=== PATIENT | male | born 1975 | race Hispanic/Latino ===

== ENCOUNTER 2023-02-28 13:03 | Emergency (ER) | payer SELFPAY ==
--- OUTSIDE RECORDS SUMMARY | 2023-02-28 13:06 | XMS REPORT | Continuity of Care Document ---
:1975 Author Organization [facility] t Address [address] [place] [address] Care Team Providers Name Role Phone Asked, No Pcp Primary Care Physician Unavailable Shey Luther LVN Attending Clinician PERCY PICHARDO Attending Clinician Unavailable Ke Hansen MD Attending Clinician Percy Pichardo MD Attending Clinician Doctor Unassigned, [place] Attending Clinician Unavailable Therapy, [facility] Covid Infusion Attending Clinician Unavailable Orlando García MD Attending Clinician ORLANDO GARCÍA Attending Clinician Unavailable PERCY PICHARDO Admitting Clinician Unavailable Percy Pichardo MD Admitting Clinician Payers Payer Name Policy Type Policy Number Effective Date Expiration Date S kameron COVID19 HRSA [id number] 2021 2021 UNINSURED 00:00:00 00:00:00 Problems Condition Condition Condition Status Onset Resolution Last Treating Co mments Source Name Details Category Date Date Treatment Clinician Date Acute Acute Disease Active 2020-05 Univers hypoxemic hypoxemic 0-20 [place]y of [place]ir[place] y failure 00 Medi nahum due to due to Branch COVID-19 COVID-19 Obesity Obesity Disease Active 2020-05 Univers (BMI (BMI 0-20 ity of 30-39.9) 30-39.9) 00:00: [place] 00 Medical Branch Acute Acute Disease Active 2019-05 Methodi suppurativ suppurativ 2-14 st e otitis e otitis 00:00: Hospit a media of media of 00 l left ear left ear with with spontaneou spontaneou s rupture s rupture of of tympanic tympanic membrane membrane Tinnitus Tinnitus Disease Active Metho di of both of both 4-26 st ears ears 00:00: Hospita 00 l 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-26 st hearing hearing 00:00: Hospita loss, loss, 00 l bilateral bilateral Adenomyosi Adenomyosi Disease Active H arris s of s of 06-14 [facility] 00:00: r r 00 Calculus Calculus Disease Active Harri s of of 06-14 [facility] 00:00: r with r with 00 chronic chronic cholecysti cholecysti tis tis without without obstructio obstructio n n Varicose Varicose Disease Active Harri s veins of veins of 8-18 Health both lower both lower 00:00: extremitie extremitie 00 s s Stomach Stomach Disease Active [place] pain pain 7 Health 00:00: 00 BMI BMI Disease Active [place] 36.0-36.9, 36.0-36.9, 7-22 He alth adult adult 00:00: 00 Other Other Disease Active [place] malaise malaise 7 Health and and 00:00: fatigue fatigue 00 Allergies, Adverse Reactions, Alerts Allergy Allergy Status Severity Reaction(s) Onset Inactive Treating Comm ents Source Name Type Date Date Clinician PENICILL Drug Active Swelling 2020-05 Univer s INS Class 0-14 ity of 00:00: [place] 00 Medical Branch Penicill Propensi Active Swelling 2020-05 Throat Univ ers ins ty to 0-14 swelling ity of adverse 00:00: [place] reaction 00 Medical s Branch Penicill Propensi Active Swelling Meth thuan ins ty to 4-26 st adverse 00:00: Hospita reaction 00 l s to drug Penicill Propensi Active Swelling Meth thuan ins ty to 4 st adverse 00:00: Hospita reaction 00 l s to drug Penicill Propensi Active Facial [place] in ty to 11-21 swelling Health adverse 00:00: reaction 00 s to drug NO KNOWN Drug Active Univers ALLERGIE Class ity of S [facility] Family History Family Member Diagnosis Comments Start Date Stop Date Source Natural mother Stroke Eliceo Foster lth Natural brother Diabetes Eliceo Seals alth Social History Social Habit Start Date Stop Date Quantity Comments Source History SDOH [facility]ism Alcohol Std Drinks Hospit al History SDOH [facility] Alcohol Binge Hospital Exposure to Yes University SARS-CoV-2 (event) [facility] History SDOH [facility] Alcohol Comment Hospital Sexual orientation Method ist Hospital History SDOH 2020-04-15 2020-04-15 1 [facility]ism Alcohol Frequency 00:00:00 00:00:00 Hospita l Alcohol intake 2020-04-15 2020-04-15 Current Confuc[facility]ism 00:00:00 00:00:00 non-drinker of Hospital alcohol (finding) History of Social 2020-04-15 2020-04-[address] function 00:00:00 00:00:00 Hospital Tobacco use and 2014-11-21 2014-11-21 Never used Eliceo Seals alth exposure 00:00:00 00:00:00 Sex [birth year] [facility] 00:00:00 00:00:00 Hospital Smoking Status Start Date Stop Date Source Unknown if ever smoked Universit y of [facility] Never smoker [facility] Branch Medications Ordered Filled Start Stop Current Ordering Indication Dosage Frequency Signature Comments Components Source Medication Medication Date Date Medication? Clinician (SIG) Name Name cholecalcif 2020-05 Yes [id number] 2000U Take 2 Univers osiris, 0-22 tablets by ity of vitamin D3, 00:00: mouth [place] 25 mcg 00 daily. Medical (1,000 Branch unit) tablet aspirin 81 2020-05 Yes [id number] 81mg Take 1 Univers mg chewable 0-22 tablet by ity of tablet 00:00: mouth [place] 00 daily. Medical Branch albuterol 2020-05 Yes [id number] 2{puff} Inhale 2 Univers 90 0-22 Puffs ity of mcg/actuati 00:00: every 4 [place] as on inhaler 00 (four) Medical hours as Branch needed for Shortness of Breath. cholecalcif 2020-05 Yes [id number] 2000U Take 2 Univers osiris, 0-22 tablets by ity of vitamin D3, 00:00: mouth [place] 25 mcg 00 daily. Medical (1,000 Branch unit) tablet aspirin 81 2020-05 Yes [id number] 81mg Take 1 Univers mg chewable 0-22 tablet by ity of tablet 00:00: mouth [place] 00 daily. Medical Branch albuterol 2020-05 Yes [id number] 2{puff} Inhale 2 Univers 90 0-22 Puffs ity of mcg/actuati 00:00: every 4 [place] as on inhaler 00 (four) Medical hours as Branch needed for Shortness of Breath. dexAMETHaso 2020-05- No [id number] 6mg Take 1 Univers ne 6 mg 0-22 10-30 tablet by ity of tablet 00:00: 04:59 mouth [place] 00 :00 daily with Medical breakfast Branch for 7 days. dexAMETHaso 2020-05- No [id number] 6mg Take 1 Univers ne 6 mg 0-22 10-30 tablet by ity of tablet 00:00: 04:59 mouth [place] 00 :00 daily with Medical breakfast Branch for 7 days. remdesivir 2020-05- No 100mg 100 mg, IV Univers 100 mg in 0- 10-25 Infusion, ity of NaCl 0.9% 21:00: 20:59 DAILY AT [place] as (NS) 100 mL 00 :00 1600, 4 Medic al MINI-BAG doses, Branch First dose on Erendira 02/20/21 at 1600, Last dose on 02/23/21 at 1600, Administer over 60 Minutes, 100 mL
Is the patient mechanical ly ventilated ? NO
Is the patient requiring supplement al oxygen? YES enoxaparin 2020-05 Yes 40mg 40 mg, Unive rs (LOVENOX) 0-21 Subcutaneo ity of injection 14:00: [place], [place]ILY, [place] 40 mg 00 First dose Medical on Erendira Branch 02/20/21 at 0900, Until Discontinu ed, Routine dexamethaso 2020-05- No 6mg 6 mg, IV U nivers ne 0-21 10-30 Push, ity of (DECADRON 14:00: 13:59 DAILY, 9 [place] PHOSPHATE) 00 :00 doses, Medical injection 6 First dose Br anch mg (after last reorder) on Wed02/20/21 at 0900, Last dose on Wed02/28/21 at 0900, STAT albuterol 2020-05 Yes 2{puff} 2 Puff, Un bren[place] (VENTOLIN) 0-21 Inhalation ity of inhaler 2 09:52: , Q4HPRN, [place] as Puff 19 Starting Medical on Erendira Branch 02/20/21 at 0452, Until Discontinu ed, Routine, Wheezing, Shortness of Breath, Bronchospa sm, Chest tightness ondansetron 2020-05 Yes 4mg 4 mg, Slow Univers (ZOFRAN 0-21 IV Push, ity of (PF)) 09:52: Q6HPRN, [place] injection 4 05 Starting Medi nahum mg on Erendira Branch 02/20/21 at 0452, Until Discontinu ed, Routine, Nausea and Vomiting (N/V) codeine-gua 2020-05 Yes 5mL 5 mL, Unive rs ifenesin 0-21 Oral, ity of (ROBITUSSIN 09:51: Q6HPRN, [place] AC) 10-100 51 Starting Medic al mg/5 mL on Erendira Branch oral 02/20/21 solution 5 at 0451, mL Until Discontinu ed, Routine, Cough acetaminoph 2020-05 Yes 650mg 650 mg, Un brenna en 0-20 Oral, ity of (TYLENOL) 22:31: Q6HPRN, [place] tablet 650 36 Starting Medic al mg on Wed Branch 02/19/21 at 1731, Until Discontinu ed, Routine, Pain (scale 1-3) iopamidol 2020-05- No [id number] 100mL 100 mL, Univers (ISOVUE 0-20 10-20 Intravenou ity o f 370-500 mL) 22:15: 22:30 s, ONCE, 1 [place] injection 00 :00 dose, On Medica l 100 mL Wed Branch 02/19/21 at 1730, Routine dexamethaso 2020-05- No 10mg 10 mg, IV Univers ne 0-20 10-20 Push, ity of (DECADRON 21:45: 21:42 ONCE, 1 [place] PHOSPHATE) 00 :00 dose, On Medic al injection Wed Branch 10 mg 02/19/21 at 1645, STAT ascorbic 2020-05 Yes 1000mg [Order 1 Uni vers acid 0-20 Start] ity of (vitamin C) 21:30: Name: [place] (VITAMIN C) 00 ascorbic Medi nahum tablet acid Branch 1,000 mg (vitamin C) (VITAMIN C) tablet 1,000 mg Signed Summary: 1,000 mg, Oral, BID, First dose on Wed02/19/21 at 1630, Until Discontinu ed, Routine [Order 1 End] [Order 2 Start] Name: cholecalci ferol (vitamin D3) tablet 2,000 Units Signed Summary: 2,000 Units, Oral, BID, First dose on Wed02/19/21 at 1630, Until Discontinu ed, Routine [Order 2 End] [Order 3 Start] Name: zinc sulfate (ORAZINC) capsule 220 mg Signed Summary: 220 mg, Oral, DAILY, First dose on Wed02/19/21 at 1630, Until Discontinu ed, Routine [Order 3 End] [Order 4 Start] Name: thiamine (VITAMIN B1) tablet 100 mg Signed Summary: 100 mg, Oral, DAILY, First dose on Wed02/19/21 at 1630, Until Discontinu ed, Routine [Order 4 End] [Order 5 Start] Name: melatonin (MELATIN) tablet 6 mg Signed Summary: 6 mg, Oral, QHS, First dose on Wed02/19/21 at 2100, Until Discontinu ed, Routine [Order 5 End] [Order 6 Start] Name: multivitam in tablet 1 tablet Signed Summary: 1 tablet, Oral, DAILY, First dose on Wed02/20/21 at 0900, Until Discontinu ed, Routine [Order 6 End] No known 2020-05 No Univers medications 0-20 ity of 19:52: [place] 14 [facility] Branch dexamet/mox 2020-05- No by Unive rs iflox/ketor 0-20 10-20 Intraocula i ty of /NaCl/PF 19:52: 00:00 r route. [place] (DEXAMET-MO 12 :00 Medical XIFL-KETORO Branch -NACL,PF,) 1-0.5-0.4 mg/mL Soln casirivimab 2020-05- No [id number] 1200mg 1,200 mg, [facility] -imdevimab 0-02-13 Subcutaneo it y of (REGEN-COV 22:45: 21:22 us, ONCE, [place] (EUA)) 00 :00 1 dose, On Medical injection Erendira Branch 1,200 mg 02/13/21 at 1745, Routine fluticasone 2019-05 Yes 100ug QD 2 sprays M ethodi propionate 2-14 ([address] (FLONASE) 00:00: total) by Hos anth[facility] 50 00 Each Nare l mcg/actuati route on nasal daily. spray fluticasone 2019-05 Yes 100ug QD 2 sprays M ethodi propionate 2-14 ([address] (FLONASE) 00:00: total) by Hos [facility] 50 00 Each Nare l mcg/actuati route on nasal daily. spray dicyclomine Yes Umbilical 10mg Take 1 [place] (BENTYL) 10 1-15 pain capsule by He alth mg capsule 00:00: mouth 3 00 times daily as needed for Pain (umbilical ). dicyclomine Yes Umbilical 10mg Take 1 [place] (BENTYL) 10 1-15 pain capsule by He alth mg capsule 00:00: mouth 3 00 times daily as needed for Pain (umbilical ). Vital Signs Vital Name Observation Time Observation Value Comments Source Heart rate 2021-02-21 21:00:00 72 /min [facility] Respiratory rate 2021-02-21 21:00:00 23 /min [facility] Oxygen saturation in 2021-02-21 21:00:00 90 /min [facility] Arterial blood by [facility] Pulse oximetry Branch Systolic blood 2021-02-21 21:00:00 110 mm[Hg] [facility] Di[facility] blood 2021-02-21 21:00:00 73 mm[Hg] [facility] Body temperature 2021-02-21 16:49:00 36.56 Ceci [facility] Body height 2021-02-20 00:54:00 180.3 cm [facility] Body weight 2021-02-20 00:54:00 114.488 kg [facility] BMI 2021-02-20 00:54:00 35.20 kg/m2 [facility] Systolic blood 2021-02-13 22:07:00 133 mm[Hg] [facility] Diastolic blood 2021-02-13 22:07:00 80 mm[Hg] [facility] Heart rate 2021-02-13 22:07:00 74 /min [facility] Body temperature 2021-02-13 22:07:00 36.83 Ceci [facility] 2021-02-13 22:07:00 20 /min [facility] Oxygen saturation in 2021-02-13 22:07:00 97 /min [facility] Arterial blood by [facility] Pulse oximetry Branch Body height 2021-02-13 21:18:00 180.3 cm [facility] Body weight 2021-02-13 21:18:00 127.007 kg [facility] BMI 2021-02-13 21:18:00 39.05 kg/m2 [facility] Procedures Procedure Date / Time Performing Clinician Source Performed DUPLEX VENOUS LEGS 2021-02-20 13:47:00 Percy Pichardo [facility] BILATERAL - BY VASCULAR [facility] Branch LAB BASIC METABOLIC PANEL 2021-02-20 10:26:00 Percy Pichardo [facility] (NA, K, CL, CO2, GLUCOSE, Medica l Branch BUN, CREATININE, CA) CBC WITH DIFF 2021-02-20 10:26:00 Percy Pichardo [facility] PROTHROMBIN TIME / INR 2021-02-20 10:26:00 Evelyn Salazar [facility] PROCALCITONIN 2021-02-19 22:35:00 Percy Pichardo [facility] CT CHEST PULMONARY 2021-02-19 22:14:46 Percy Pichardo [facility] ANGIOGRAM Medical Branch CRITICAL CARE 2021-02-19 21:30:38 Ke Hansen [facility] XR CHEST 1 VW 2021-02-19 20:17:53 Ke Hansen [facility] HB ECG ROUTINE & RHYTHM 2021-02-19 20:14:11 Ke Hansen [facility] STRIP Medical Branch C-REACTIVE PROTEIN 2021-02-19 20:04:00 Percy Pichardo [facility] TROPONIN I 2021-02-19 20:04:00 Ke Hansen [facility] COMP. METABOLIC PANEL 2021-02-19 20:04:00 Ke Hansen [facility] ([id number]) Medical Branch CBC WITH DIFF 2021-02-19 20:04:00 Tyrone Ke [facility] N-TERMINAL PRO-BNP 2021-02-19 20:04:00 Ke Hansen [facility] COVID-19 (ID NOW RAPID 2021-02-19 20:04:00 Ke Hansen [facility] TESTING) Medical Branch LAB ONLY COVID 2021-02-19 20:04:[address] [facility] NOTICE OF PRIVACY 2021-02-19 19:23:02 Doctor Unassigned, [facility] PRACTICES [facility] CONSENT/REFUSAL FOR 2021-02-19 19:22:31 Doctor Unassigned, [facility] DIAGNOSIS AND TREATMENT [place] [facility] [id number] CONSENT 2021-02-13 05:01:00 Doctor Unassigned, [facility] Plan of Care Planned Activity Planned Date Details Comments Source Future Scheduled 2023-02-27 [facility] Test 00:46:51 malignant neoplasm of colon (procedure) [code = 158893646] Future Scheduled 2023-02-27 [facility] Test 00:46:51 malignant neoplasm of colon (procedure) [code = 023582141] Future Scheduled 2023-02-27 [facility] Test 00:46:51 malignant neoplasm of colon (procedure) [code = 254306201] Future Scheduled 2023-02-27 COVID-19 VACCINE [facility] Test 00:46:51 (#1) [code = COVID-19 VACCINE (#1)] Future Scheduled 2023-02-27 Hepatitis C [facility] Test 00:46:51 screening (procedure) [code = 741518540] Future Scheduled 2023-02-27 [facility] Test 00:46:51 malignant neoplasm of colon (procedure) [code = 610142448] Future Scheduled 2023-02-27 [facility] Test 00:46:51 malignant neoplasm of colon (procedure) [code = 001677045] Future Scheduled 2023-02-27 INFLUENZA VACCINE Method ist Hospital Test 00:46:51 (#1) [code = INFLUENZA VACCINE (#1)] Future Scheduled 2023-01-01 IMM Influenza [place] [facility] Test 00:00:00 Seasonal (>/= 19 yrs) [code = IMM Influenza Seasonal (>/= 19 yrs)] Future Scheduled 2021-06-04 COVID-19 VACCINE [facility] Test 00:14:58 (1) [code = COVID-19 VACCINE (1)] Future Scheduled 2021-06-04 [facility] Test 00:14:58 screening (procedure) [code = 419309027] Future Scheduled 2021-06-04 INFLUENZA VACCINE [facility] Hospital Test 00:14:58 [code = INFLUENZA VACCINE] Future Scheduled 2021-01-31 IMM Influenza [place] [facility] Test 00:00:00 Seasonal Jan to July (>/= 19 yrs) [code = IMM Influenza Seasonal Jan to July (>/= 19 yrs)] Future Scheduled 1980 COVID-19 Vaccine [facility] Test 00:00:00 (1) [code = COVID-19 Vaccine (1)] Future Scheduled 1975 COVID-19 Vaccine [facility] Test 00:00:00 (#1) [code = COVID-19 Vaccine (#1)] Encounters Start End Encounter Admission Attending Care Care Encounter Source Date/Time Date/Time Type Type Clinicians Facility Department ID 2021-02-24 2021-02-24 Transition Mariajose Luther [id number] Univers 00:00:00 00:00:00 of Care Shey Luna [id number] ity [id number] [id number] [facility] nahum 403 Branch 2021-02-19 2021-02-21 Inpatient X [facility] [id number] Univers 14:40:00 19:20:00 PERCY ity [facility] 2021-02-19 2021-02-21 Hospital Ke Hansen [facility] [id number] Univers 14:40:00 19:20:00 Encounter Goldy Percy Liu [id number] ity [id number] [phone] [facility] 080 Branch 2021-02-19 2021-02-19 Orders Doctor [place]ARLAND [id number] Univers 00:00:00 00:00:00 Only Unassigned, HORACE [id number] ity of [place] [facility] [id number] [place] [id number] [facility] 009 Branch 2021-02-13 2021-02-13 Nurse Therapy, Adc Covid Infusion [facility] [id number] Univers 16:11:56 17:11:56 Visit Orlando García [id number] ity [id number] [facility] [phone] [facility] 053 Branch 2021-02-13 2021-02-13 Outpatient R SERENA [facility] [id number] Univers 16:00:00 16:00:00 [place] [facility] 2021-02-13 2021-02-13 Orders Doctor GARLAND [id number] Univers 00:00:00 00:00:00 Only Unassigned, HORACE [id number] ity of [place] [facility] [id number] [place] [phone] [facility] 009 Wing Results Test Description Test Time Test Comments Results Result Comments Source C-REACTIVE PROTEIN 2021-02-20 14:57:42 Test Item Value Reference Range Interpretation Comme nts CRP (test code = 9399565260) 1.2 mg/dL <0.8 H Lab Interpretation (test code = 38378-4) Abnormal [facility] (NA, K, CL, CO2, GLUCOSE, BUN, CREATININE, CA)2021-02-20 13:26:42 Test Item Value Reference Range Interpretation Comments NA (test code = 137 mmol/L 135-145 7122985625) K (test code = 4.5 mmol/L 3.5-5.0 5403839146) CL (test code = 107 mmol/L 98-108 9967136106) CO2 TOTAL (test code = 24 mmol/L 23-31 1513933453) AGAP (test code = 2-16 6894791029) BUN (test code = 19 mg/dL 7-23 6166760031) GLUCOSE (test code = 126 mg/dL 70-110 H 7022547410) CREATININE (test code = 0.79 mg/dL 0.60-1.25 6595374596) CALCIUM (test code = 8.7 mg/dL 8.6-10.6 9759097469) eGFR (test code = mL/min/1.73m2 3923540544) NEEL (test code = NEEL) Association of Glomerular Filtration Rate (GFR) and Staging of Kidney Disease* + --+ --+ ------+| GFR (mL/min/1.73 m2) ?| With Kidney Damage ?| ?Without Kidney Damage+ --------+ --------+ +| ?>90 ?| ?Stage one ?| ? Normal ?+ ---+ ---+ -------+| ?60-89 ?| ?Stage two ?| ? Decreased GFR ? + --+ --+ ------+| ?30-59 ?| ?Stage three ?| ? Stage three ? + --+ --+ ------+| ?15-29 ?| ?Stage four ? | ? Stage four ?+ ---+ ---+ -------+| ?<15 (or dialysis) ? ?| ?Stage five ? | ? Stage five ?+ ---+ ---+ -------+ *Each stage assumes the associated GFR level has been in effect for at least three months. ?Stages 1 to 5, with or without kidney disease, indicate chronic kidney disease. Notes: Determination of stages one and two (with eGFR >59mL/min/1.73 m2) requires estimation of kidney damage for at least three months as defined by structural or functional abnormalities of the kidney, manifested by either:Pathological abnormalities or Markers of kidney damage (including abnormalities in the composition of the blood or urine or abnormalities in imaging tests). Lab Interpretation Abnormal (test code = 81081-5) [facility] with [id number] 12:48:13 Test Item Value Reference Range Interpretation Comments WBC (test code = See_Comment [Automated 6690-2) message] The sy stem which generated this result transmitted reference range : 4.20 - 10.70 10*3/?L. The reference range was not used to interpret this result as normal/abnormal . RBC (test code = See_Comment [Automated 789-8) message] The sy stem which generated this result transmitted reference range : 4.26 - 5.52 10*6/?L. The reference range was not used to interpret this result as normal/abnormal . HGB (test code = 14.2 g/dL 12.2-16.4 718-7) HCT (test code = 43.4 % 38.4-49.3 4544-3) MCV (test code = 80.1 fL 81.7-95.6 L 787-2) MCH (test code = 26.2 pg 26.1-32.7 785-6) MCHC (test code = 32.7 g/dL 31.2-35.0 786-4) RDW-SD (test code = 35.0 fL 38.5-51.6 L 50397-5) RDW-CV (test code = 12.3 % 12.1-15.4 788-0) PLT (test code = See_Comment H [Automated 777-3) message] The sy stem which generated this result transmitted reference range : 150 - 328 10*3/ ?L. The reference r josue was not used to interpret this result as normal/abnormal . MPV (test code = 10.8 fL 9.8-13.0 36743-6) NRBC/100 WBC (test See_Comment [Automat ed code = 7541537229) message] The system which generated this result transmitted reference range : 0.0 - 10.0 /100 WBCs. The refer ence range was not u sed to interpret th is result as normal/abnormal . NRBC x10^3 (test code <0.01 See_Comment [Auto mated = 2160845888) message] The s ystem which generated this result transmitted reference range : 10*3/?L. The reference range was not used to interpret this result as normal/abnormal . GRAN MAT (NEUT) % 66.1 % (test code = 770-8) IMM GRAN % (test code 5.50 % = 2997001195) LYMPH % (test code = 19.9 % 736-9) MONO % (test code = 8.0 % 5905-5) EOS % (test code = 0.0 % 713-8) BASO % (test code = 0.5 % 706-2) GRAN MAT x10^3(ANC) 4.95 10*3/uL 1.99-6.95 (test code = 4149399600) IMM GRAN x10^3 (test 0.41 10*3/uL 0.00-0.06 H code = 7611786832) LYMPH x10^3 (test code 1.49 10*3/uL 1.09-3.23 = 731-0) MONO x10^3 (test code 0.60 10*3/uL 0.36-1.02 = 742-7) EOS x10^3 (test code = <0.03 0.06-0.53 L 711-2) BASO x10^3 (test code 0.04 10*3/uL 0.01-0.09 = 704-7) REACT LYMPHS (test Rare code = 5063902542) Lab Interpretation Abnormal (test code = 68150-9) [facility] [id number] 12:17:46 Test Item Value Reference Range Interpretation Comments PROTIME PATIENT (test See_Comment [Auto mated message] code = 5964-2) The system [employer] generated this result transmitted ref erence range: 12.0 - 1 4.7 Seconds. The re ference range was not u sed to interpret this result as normal/abnor mal. INR (test code = 6301-6) Nor mal INR <1.1; Warfarin Therap eutic range 2.0 to 3. 0 or 2.5 to 3.5, dep ending upon the indica tions. Lab Interpretation (test Normal code = 95357-1) [facility] 03:42:19 Test Item Value Reference Range Interpretation Comments Procalcitonin (test 0.02 ng/mL <0.07 code = 3114532288) NEEL (test code = NEEL) INTERPRETATION OF PROCALCITONIN RESULTS IN ADULTS >= 18 YEARS OF AGE Initiation and discontinuation of antibiotics on patients with suspected or confirmed Lower Respiratory Tract Infection in Adults >= 18 years of age. + +-------- --------+ + -----+|Procalcitonin |Interpretation ?|Antibiotic ? ? |Considerations ? |ng/mL ? | ?|recommendation | ? + +-------- --------+ + -----+| <0.1 ? | Bacterial ? ? ?| Strongly ? ? ?| ? | ?| infection very | discouraged ? | Overruling: ? | ?| unlikely ? ? ? | ? | ? Clinically unstable ? ? ? + +-------- --------+ + ? High risk for adverse ? ? | <0.25 ?| Bacterial ? ? ?| Discouraged ? | ? outcome ? | ?| infection ? ? ?| ? | ? SEE IMPORTANT NOTE ?| ?| unlikely ? ? ? | ? | ? + +-------- --------+ + -----+| >=0.25 ? ? ? | Bacterial ? ? ?| Encouraged ? ?| ? | ?| infection ? ? ?| ? | ? | ?| likely ? | ? | Consider treatment failure ?+ +------- ---------+ -+ if levels does not decrease | >0.5 ? | Bacterial ? ? ?| Strongly ? ? ?| appropriately ? | ?| infection very | encouraged ? ?| ? | ?| likely ? | ? | ? + +-------- --------+ + -----+ Discontinuation of antibiotics in high-acuity patients with suspected or confirmed sepsis in Adults >= 18 years of age. + +-------- --------+ + -----+|Procalcitonin |Interpretation ?|Antibiotic ? ? |Considerations ? |ng/mL ? | ?|recommendation | ? + +-------- --------+ + -----+| <0.25 ?| Bacterial ? ? ?| Strongly ? ? ?| ? | ?| infection very | discouraged ? | Overruling: ? | ?| unlikely ? ? ? | ? | ? Clinically unstable ? ? ? + +-------- --------+ + ? High risk for adverse ? ? | <0.5 or drop | Bacterial ? ? ?| Discouraged ? | ? outcome ? | >80% from ? ?| infection ? ? ?| ? | ? SEE IMPORTANT NOTE ?| highest PCT ?| unlikely ? ? ? | ? | ? | level ?| ?| ? | ? + +-------- --------+ + -----+| >=0.5 ?| Bacterial ? ? ?| Encouraged ? ?| ? | ?| infection ? ? ?| ? | ? | ?| likely ? | ? | Consider treatment failure ?+ +------- ---------+ -+ if levels does not decrease | >1.0 ? | Bacterial ? ? ?| Strongly ? ? ?| appropriately ? | ?| infection very | encouraged ? ?| ? | ?| likely ? | ? | ? + +-------- --------+ + -----+ Percentage of drop of Procalcitonin calculation for Discontinuation of antibiotics in high-acuity patients with suspected or confirmed sepsis in Adults >= 18 years of age. ? Procalcitonin highest{}-Procalcitonin current{}Delta Procalcitonin = x100% ? Procalcitonin current {} IMPORTANT NOTE: Procalcitonin may be elevated without bacterial infection by physiologic stress related to trauma, bullock, chronic dialysis, metastatic cancer, surgery in the past seven days, malaria, some fungal infections, and some forms of vasculitis. The interpretation algorithm may not apply to patients with immunosuppression (equivalent of >10 mg of prednisone daily), HIV with CD4 cell count < 350 cells/mm3, active malignancy on systemic chemotherapy, solid organ transplant or hematopoietic stem cell transplantation, or hospital acquired pneumonia. Additionally, some clinical trials of procalcitonin have excluded patients with shock requiring vasopressor use, acute respiratory failure requiring mechanical ventilation, or those with known lung abscess/empyema. For further information please refer to:[email or web address] Lab Interpretation Normal (test code = 85741-2) [facility] WITH [id number] 20:56:55 Test Item Value Reference Range Interpretation Comments WBC (test code = See_Comment [Automated 1403-2) message] The sy stem which generated this result transmitted reference range : 4.20 - 10.70 10*3/?L. The reference range was not used to interpret this result as normal/abnormal . RBC (test code = See_Comment H [Automated 449-8) message] The sy stem which generated this result transmitted reference range : 4.26 - 5.52 10*6/?L. The reference range was not used to interpret this result as normal/abnormal . HGB (test code = 14.9 g/dL 12.2-16.4 718-7) HCT (test code = 45.5 % 38.4-49.3 4544-3) MCV (test code = 80.4 fL 81.7-95.6 L 787-2) MCH (test code = 26.3 pg 26.1-32.7 785-6) MCHC (test code = 32.7 g/dL 31.2-35.0 786-4) RDW-SD (test code = 35.5 fL 38.5-51.6 L 21519-0) RDW-CV (test code = 12.4 % 12.1-15.4 788-0) PLT (test code = See_Comment H [Automated 707-3) message] The sy stem which generated this result transmitted reference range : 150 - 328 10*3/ ?L. The reference r josue was not used to interpret this result as normal/abnormal . MPV (test code = 10.6 fL 9.8-13.0 77960-1) NRBC/100 WBC (test See_Comment [Automat ed code = 2900178201) message] The system which generated this result transmitted reference range : 0.0 - 10.0 /100 WBCs. The refer ence range was not u sed to interpret th is result as normal/abnormal . NRBC x10^3 (test code <0.01 See_Comment [Auto mated = 2932362881) message] The s ystem which generated this result transmitted reference range : 10*3/?L. The reference range was not used to interpret this result as normal/abnormal . GRAN MAT (NEUT) % 68.6 % (test code = 770-8) IMM GRAN % (test code 5.60 % = 4786186911) LYMPH % (test code = 16.1 % 736-9) MONO % (test code = 9.2 % 5905-5) EOS % (test code = 0.0 % 713-8) BASO % (test code = 0.5 % 706-2) GRAN MAT x10^3(ANC) 5.71 10*3/uL 1.99-6.95 (test code = 5992924061) IMM GRAN x10^3 (test 0.47 10*3/uL 0.00-0.06 H code = 6266566641) LYMPH x10^3 (test code 1.34 10*3/uL 1.09-3.23 = 731-0) MONO x10^3 (test code 0.77 10*3/uL 0.36-1.02 = 742-7) EOS x10^3 (test code = <0.03 0.06-0.53 L 711-2) BASO x10^3 (test code 0.04 10*3/uL 0.01-0.09 = 704-7) BANDS (test code = Increased A 6799696447) REACT LYMPHS (test Rare code = 8090784148) Lab Interpretation Abnormal (test code = 09927-2) [facility] [id number] 20:43:12 Test Item Value Reference Interpretation Comments Range TROPONIN I (test 0.003 ng/mL See_Comment [Automated code = 6393224368) message] The system which generated this result transmitted reference range : <=0.034. The reference range was not used to interpret this result as normal/abnormal . NEEL (test code = Reference (Normal) NEEL) Range (defined by the 99th percentile reference limit): <= 0.034 ng/mL Note: Cardiac troponin begins to rise 3-4 hours after the onset of ischemia. Repeat in 4-6 hours if the sample was drawn within 3-4 hours of the onset of the symptom and found normal. Diagnosis of myocardial injury is made with acute changes in cTn concentrations with at least one serial sample above the 99th percentile upper reference limit (URL), taken together with the patient's clinical presentation. Biotin has been reported to cause a negative bias, interpret results relative to patient's use of biotin. Lab Interpretation Normal (test code = 47554-2) [facility] [id number] 20:40:08 Test Item Value Reference Range Interpretation Comments NT-proBNP (test code 73 pg/mL See_Comment [Autom ated = 9600216984) message] The system which generated this result transmitted reference range : <=125. The reference range was not used to interpret this result as normal/abnormal . NEEL (test code = NEEL) Biotin has been reported to cause a negative bias, interpret results relative to patient's use of biotin. Lab Interpretation Normal (test code = 06739-8) [facility] [id number] 20:32:46 Test Item Value Reference Range Interpretation Comments NA (test code = 138 mmol/L 135-145 1270671897) K (test code = 5.4 mmol/L 3.5-5.0 H 8907085141) CL (test code = 107 mmol/L 98-108 6870061840) CO2 TOTAL (test code = 24 mmol/L 23-31 0669539141) AGAP (test code = 2-16 6065381090) BUN (test code = 16 mg/dL 7-23 2529394941) GLUCOSE (test code = 117 mg/dL 70-110 H 8107821189) CREATININE (test code = 0.79 mg/dL 0.60-1.25 7842070104) TOTAL BILI (test code = 0.9 mg/dL 0.1-1.8 6553856253) CALCIUM (test code = 9.1 mg/dL 8.6-10.6 1754773381) T PROTEIN (test code = 7.4 g/dL 6.3-8.2 4967556685) ALBUMIN (test code = 3.9 g/dL 3.5-5.0 4272988431) ALK PHOS (test code = 58 U/L 34-122 8669035175) ALTv (test code = 47 U/L 5-50 2-6) AST(SGOT) (test code = 39 U/L 13-40 8282103498) eGFR (test code = mL/min/1.73m2 3950098221) NEEL (test code = NEEL) Association of Glomerular Filtration Rate (GFR) and Staging of Kidney Disease* + --+ --+ ------+| GFR (mL/min/1.73 m2) ?| With Kidney Damage ?| ?Without Kidney Damage+ --------+ --------+ +| ?>90 ?| ?Stage one ?| ? Normal ?+ ---+ ---+ -------+| ?60-89 ?| ?Stage two ?| ? Decreased GFR ? + --+ --+ ------+| ?30-59 ?| ?Stage three ?| ? Stage three ? + --+ --+ ------+| ?15-29 ?| ?Stage four ? | ? Stage four ?+ ---+ ---+ -------+| ?<15 (or dialysis) ? ?| ?Stage five ? | ? Stage five ?+ ---+ ---+ -------+ *Each stage assumes the associated GFR level has been in effect for at least three months. ?Stages 1 to 5, with or without kidney disease, indicate chronic kidney disease. Notes: Determination of stages one and two (with eGFR >59mL/min/1.73 m2) requires estimation of kidney damage for at least three months as defined by structural or functional abnormalities of the kidney, manifested by either:Pathological abnormalities or Markers of kidney damage (including abnormalities in the composition of the blood or urine or abnormalities in imaging tests). Lab Interpretation Abnormal (test code = 70933-7) [facility]"
[2023-02-28] MEDS ORDERED: methocarbamoL 500 MG TAB ONE (13:46)
[2023-02-28] MEDS ORDERED: KETOROLAC 30 MG/ML INJ ONE (13:47)
[2023-02-28 13:53] LABS: Absolute Lymphocytes (CBC) 3.4 K/uL (0.7-4.9); Hematocrit 44.9 % (39.6-49.0); Lymphocytes % 39.4 % (15.3-44.8); MPV 9.1 fL (7.6-11.3); Platelets 257 thou/uL (152-406); RBC Red Blood Cell Count 5.55 M/uL (4.33-5.43)
--- NOTE | 2023-02-28 14:10 | RAD REPORT ---
EXAM DESCRIPTION: USExtremity Venous Uni Ltd02/28/2023 2:02 pm CLINICAL HISTORY: left leg swelling COMPARISON: None FINDINGS: Left common femoral, superficial femoral, greater saphenous, popliteal and posterior tibi al veins are compressible and demonstrate augmentation. Doppler demonstrates good flow. Grayscale, color and spectral analysis performed on all vessels IMPRESSION: No evidence of deep venous thrombosis involving the left lower extremity.
[2023-02-28 14:26] LABS: Potassium 3.7 mEq/L (3.5-5.1)
--- NOTE | 2023-02-28 14:40 | ER ---
Nurse's Notes [facility] Name: Rayray Cardozo Age: 47 yrs Sex: Male : 1975 Arrival Date: 02/28/2023 Time: 13:03 Bed 7 Private MD: Diagnosis: Muscle spasm;Pain in left arm Presentation: 02/28 13:09 Chief complaint: Patient states: "20 minutes ago, I started having left arm pain while mb9 at work. It feels like my veins are on fire and tingles and keeping my arm elevated helps. The same thing happened in my left leg 1 week ago". Coronavirus screen: At this time, the client does not indicate any symptoms associated with coronavirus-19. Ebola Screen: No symptoms or risks identified at this time. Initial Sepsis Screen: Does the patient meet any 2 criteria? No. Patient's initial sepsis screen is negative. Does the patient have a suspected source of infection? No. Patient's initial sepsis screen is negative. Risk Assessment: Do you want to hurt yourself or someone else? Patient reports no desire to harm self or others. Onset of symptoms was February 28, 2023. 13:09 Method Of Arrival: Ambulatory mb9 13:09 Acuity: GARRET 3 mb9 Historical: - Allergies: 13:13 PENICILLINS; mb9 - Home Meds: 13:13 None [Active]; mb9 - PMHx: 13:13 None; mb9 - PSHx: 13:13 None; mb9 - Immunization history:: Adult Immunizations up to date. - Social history:: Smoking status: Patient reports the use of cigarette tobacco products, denies chronic smoking, but will smoke occasionally. Screenin:10 [facility] ED Fall Risk Assessment (Adult) History of falling in the last 3 months, rs5 including since admission No falls in past 3 months (0 pts) Confusion or Disorientation No (0 pts) Intoxicated or Sedated No (0 pts) Impaired Gait No (0 pts) Mobility Assist Device Used No (0 pt) Altered Elimination No (0 pt) Score/Fall Risk Level 0 - 2 = Low Risk Oriented to surroundings, Maintained a safe environment. 13:10 Abuse screen: Denies threats or abuse. Nutritional screening: No deficits noted. rs5 Tuberculosis screening: No symptoms or risk factors identified. Assessment: 13:10 General: Appears in no apparent distress. comfortable, Behavior is calm, cooperative. rs5 13:10 Pain: Complains of pain in left forearm Pain does not radiate. Pain currently is 6 out rs5 of 10 on a pain scale. Quality of pain is described as sharp, shooting, Pain began 3 hours ago. Is intermittent. Neuro: Level of Consciousness is awake, alert, obeys commands, Oriented to person, place, time, situation. Cardiovascular: Heart tones S1 S2 present Pulses are all present. Rhythm is regular. Respiratory: Airway is patent Respiratory effort is even, unlabored, Respiratory pattern is regular, symmetrical, Breath sounds are clear bilaterally. GI: Abdomen is round non-distended, Bowel sounds present X 4 quads. Abd is soft and non tender X 4 quads. : No signs and/or symptoms were reported regarding the genitourinary system. EENT: No signs and/or symptoms were reported regarding the EENT system. Derm: Skin is intact, Skin is pink, warm \\T\\ dry. Derm:. Musculoskeletal: Range of motion: intact in all extremities. 13:50 Reassessment: Patient denies pain at this time. rs5 14:55 Reassessment: Patient and/or family updated on plan of care and expected duration. Pain rs5 level reassessed. Patient is alert, oriented x 3, equal unlabored respirations, skin warm/dry/pink. Vital Signs: 13:09 BP 142 / 82; Pulse 86; Resp 18; Temp 98.5; Pulse Ox 98% ; Weight 119.29 kg; Height 5 mb9 ft. 11 in. ; Pain 9/10; 13:48 BP 129 / 73; Pulse 80; Resp 18; Pulse Ox 98% on R/A; rs5 14:40 BP 133 / 75; Pulse 82; Resp 17; Pulse Ox 99% on R/A; rs5 13:09 Body Mass Index 36.68 (119.29 kg, 180.34 cm) mb9 13:09 Pain Scale: Adult mb9 ED Course: 13:07 Patient arrived in ED. mg5 13:08 Jordan More MD is Attending Physician. ec2 13:10 Eliceo Sprague, BOY is Primary Nurse. rs5 13:10 Patient has correct armband on for positive identification. Call light in reach. Side rs5 rails up X2. 13:13 Triage completed. mb9 13:13 Arm band placed on. mb9 13:35 Inserted saline lock: 22 gauge in right forearm, using aseptic technique. rs5 14:03 Extremity Venous Uni Ltd US In Process Unspecified. EDMS 15:17 No provider procedures requiring assistance completed. rs5 15:17 IV discontinued, intact, bleeding controlled, No redness/swelling at site. Pressure rs5 dressing applied. Administered Medications: 13:35 Drug: Ketorolac IVP 15 mg IVP once Route: IVP; Site: right forearm; rs5 13:50 Follow up: Response: No adverse reaction; Pain is decreased rs5 13:35 Drug: Methocarbamol PO 500 mg PO once Route: PO; rs5 14:41 Follow up: Response: No adverse reaction rs5 Medication: 15:17 VIS not applicable for this client. rs5 Outcome: 14:40 Discharge ordered by MD. ec2 15:17 Discharged to home ambulatory, with family, rs5 15:17 Condition: stable rs5 15:17 Discharge instructions given to patient, family, Instructed on discharge instructions, follow up and referral plans. medication usage, Demonstrated understanding of instructions, follow-up care, medications, Prescriptions given X 1, 15:20 Patient left the ED. aa5 Signatures: Dispatcher [employer] EDMS Lilian Godwin RN RN aa5 Enedina Johns RN RN mb9 Eliceo Sprague, RN RN rs5 Stcaia Mccurdy mg5 Jordan More MD MD ec2 Corrections: (The following items were deleted from the chart) 13:15 13:09 Chief complaint: Patient states: "20 minutes ago, I started having left arm pain mb9 while at work. It feels like my veins are on fire and keeping my arm elevated helps." mb9 15:27 15:17 Transferred by ground EMS to [facility], Transfer form rs5 completed. X-rays sent w/ patient. rs5 15:27 15:17 Condition: stable rs5 rs5 15:27 15:17 Instructed on the need for transfer, Demonstrated understanding of instructions, rs5 rs5 15:28 15:17 Patient transferred, IV remains in place. rs5 rs5 16:42 15:17 Discharge instructions given to patient, family, Instructed on discharge rs5 instructions, follow up and referral plans. medication usage, Demonstrated understanding of instructions, follow-up care, medications, Prescriptions given X 1, rs5
--- NOTE | 2023-02-28 14:41 | EDPHYS ---
Physician Documentation [facility] Name: Rayray Cardozo Age: 47 yrs Sex: Male : 1975 Arrival Date: 02/28/2023 Time: 13:03 Bed 7 Private MD: ED Physician Jordan More HPI: 02/28 13:28 This 47 yrs old Male presents to ER via Ambulatory with complaints of Arm Pain.ec2 13:28 Patient arrives today due to concern for left arm pain as well as left leg swelling. ec2 Patient reports what brought him today specifically was he had a sudden sharp pain in the left forearm and felt pain with gripping and felt some numbness as well. Patient states incident happened just prior to arrival. Patient reports no falls or injuries or trauma. Reports previous similar episodes. Patient also with concern for left lower extremity varicosity with recent increase in size. No chest pain, no new shortness of breath. No medical problems.. Historical: - Allergies: 13:13 PENICILLINS; mb9 - Home Meds: 13:13 None [Active]; mb9 - PMHx: 13:13 None; mb9 - PSHx: 13:13 None; mb9 - Immunization history:: Adult Immunizations up to date. - Social history:: Smoking status: Patient reports the use of cigarette tobacco products, denies chronic smoking, but will smoke occasionally. ROS: 13:28 Constitutional: as per hpi ec2 Exam: 13:28 Constitutional: GEN: NAD Head: atraumatic Eyes: EOMI Ears: External ears are ec2 normal. CV: regular rate, left lower extremity with prominent tortuous varicose vein on the calf noted LUNGS: no respiratory distress ABD: non-distended SKIN: no evidence of rashes MSK: no evidence of trauma, no tenderness to palpation over the forearm NEURO: moves all extremities equally Vital Signs: 13:09 BP 142 / 82; Pulse 86; Resp 18; Temp 98.5; Pulse Ox 98% ; Weight 119.29 kg; Height 5 mb9 ft. 11 in. ; Pain 9/10; 13:48 BP 129 / 73; Pulse 80; Resp 18; Pulse Ox 98% on R/A; rs5 14:40 BP 133 / 75; Pulse 82; Resp 17; Pulse Ox 99% on R/A; rs5 13:09 Body Mass Index 36.68 (119.29 kg, 180.34 cm) mb9 13:09 Pain Scale: Adult mb9 MDM: 13:08 Patient medically screened. ec2 13:28 ED course: Patient arrives today due to concern for left forearm pain as well as left ec2 prominent varicose vein in the left lower extremity. Will obtain lab work, treat the patient's pain and obtain a DVT ultrasound. Currently considering MSK pain/muscle spasm, DVT, electrolyte disturbance.. 14:28 ED course: Patient's lab work remarkable for reassuring CBC, metabolic profile with ec2 appropriate electrolytes and some diminished renal function appreciated. DVT ultrasound shows no evidence of DVT. . 14:40 Data reviewed: vital signs. ED course: On reassessment patient is well-appearing, ec2 reports improvement in his pain, intact strength in the bilateral upper extremities. Will discharge home, return precautions given. . 02/28 13:28 Order name: CBC with Diff; Complete Time: 14:28 ec2 02/28 13:28 Order name: BMP; Complete Time: 14:28 ec2 02/28 13:28 Order name: Extremity Venous Uni Ltd US; Complete Time: 14:28 ec2 Administered Medications: 13:35 Drug: Ketorolac IVP 15 mg IVP once Route: IVP; Site: right forearm; rs5 13:50 Follow up: Response: No adverse reaction; Pain is decreased rs5 13:35 Drug: Methocarbamol PO 500 mg PO once Route: PO; rs5 14:41 Follow up: Response: No adverse reaction rs5 Disposition Summary: 02/28/23 14:40 Discharge Ordered Notes: Location: Home ec2 Condition: Stable ec2 Diagnosis - Muscle spasm ec2 - Pain in left arm ec2 Discharge Instructions: - Ibuprofen Dosage Chart, Pediatric hb - Acetaminophen Dosage Chart, Pediatric hb - Discharge Summary Sheet ec2 - Muscle Cramps and Spasms ec2 Forms: - Work release form aa5 - School release form hb - Family Work Release hb - Medication Reconciliation Form ec2 - Thank You Letter ec2 - Antibiotic Education ec2 - Prescription Opioid Use ec2 - Patient Portal Instructions ec2 - Leadership Thank You Letter ec2 Prescriptions: - methocarbamol 500 mg Oral tablet - take 2 tablets ORAL route 4 times per day; 20 tablet; Refills: 0, Product ec2 Selection Permitted Signatures: Dispatcher [employer] EDMS Breneman, Enedina Diaz, RN RN mb9 Eliceo Sprague RN RN rs5 Jordan More MD MD ec2
[2023-02-28 15:29] VITALS: TEMP 98.5; O2SAT 98
[2023-02-28 15:36] VITALS: BP 129/73
== END 2023-02-28 15:20 | disposition home or self-care (01) ==
LOC: ER 13:03
DX: M62.838 Other muscle spasm (principal)
CPT/HCPCS: 36415; 80048; 85025; 93971; 96374; 99284